=== PATIENT | female | born 1955 | race Caucasian/White ===

== ENCOUNTER 2022-07-08 07:26 | Outpatient (REF) | payer OTHER, SELFPAY | END 2022-07-08 07:27 | disposition home or self-care (01) | LOC: HO.HOSX 07:26 | PROVIDERS: Visit Provider Physician Assistant | DX: Z13.89 Encounter for screening for other disorder (principal) ==

== ENCOUNTER 2022-07-11 07:16 | Outpatient (REF) | payer OTHER, SELFPAY | END 2022-07-11 07:17 | disposition home or self-care (01) | LOC: HO.HOSX 07:16 | PROVIDERS: Visit Provider Physician Assistant | DX: Z13.89 Encounter for screening for other disorder (principal) ==

== ENCOUNTER 2022-08-12 07:29 | Outpatient (REF) | payer OTHER, SELFPAY ==
--- NOTE | ~2022-08-12 | XR_ITS ---
EXAMINATION: XR KNEE SERIES, BILATERAL CLINICAL INFORMATION: Pain in right knee COMPARISON: None TECHNIQUE: AP upright of both knees. Additional lateral and patella view of the right knee. FINDINGS: RIGHT KNEE: Medial Compartment: Severe joint space narrowing and marginal osteophytes indicative of severe osteoarthritis. There is chondrocalcinosis. Lateral Compartment: Marginal osteophytes with nonuniform joint space narrowing indicative of at least [id number] osteoarthritis. There is chondrocalcinosis. Patellofemoral Compartment: Marginal osteophytes indicative of mild osteoarthritis. No effusion. Calcification of the distal quadriceps tendon. Calcification adjacent to the medial femoral condyle likely within the medial collateral ligament. This can be seen with calcific periarthritis or old trauma to medial collateral ligament. Prominent arterial calcification. LEFT KNEE LIMITED AP UPRIGHT: There is chondrocalcinosis. Medial Compartment: Severe joint space narrowing and marginal osteophytes indicative of severe arthrosis. Lateral Compartment: Marginal osteophytes indicative of at least mild osteoarthritis. Prominent arterial calcification. Patella femoral joint not assessed. XR/XR knee RT 2V IMPRESSION: RIGHT KNEE: 1. Chondrocalcinosis. Additional soft tissue calcifications as detailed above likely reflective of calcium pyrophosphate deposition disease or old trauma. 2. Osteoarthritis with degenerative changes severe in the medial compartment. LEFT KNEE: 1. Chondrocalcinosis. 2. Severe osteoarthritis.
--- NOTE | ~2022-08-12 | XR_ITS ---
EXAMINATION: XR KNEE SERIES, BILATERAL CLINICAL INFORMATION: Pain in right knee COMPARISON: None TECHNIQUE: AP upright of both knees. Additional lateral and patella view of the right knee. FINDINGS: RIGHT KNEE: Medial Compartment: Severe joint space narrowing and marginal osteophytes indicative of severe osteoarthritis. There is chondrocalcinosis. Lateral Compartment: Marginal osteophytes with nonuniform joint space narrowing indicative of at least [id number] osteoarthritis. There is chondrocalcinosis. Patellofemoral Compartment: Marginal osteophytes indicative of mild osteoarthritis. No effusion. Calcification of the distal quadriceps tendon. Calcification adjacent to the medial femoral condyle likely within the medial collateral ligament. This can be seen with calcific periarthritis or old trauma to medial collateral ligament. Prominent arterial calcification. LEFT KNEE LIMITED AP UPRIGHT: There is chondrocalcinosis. Medial Compartment: Severe joint space narrowing and marginal osteophytes indicative of severe arthrosis. Lateral Compartment: Marginal osteophytes indicative of at least mild osteoarthritis. Prominent arterial calcification. Patella femoral joint not assessed. XR/XR knee standing BI IMPRESSION: RIGHT KNEE: 1. Chondrocalcinosis. Additional soft tissue calcifications as detailed above likely reflective of calcium pyrophosphate deposition disease or old trauma. 2. Osteoarthritis with degenerative changes severe in the medial compartment. LEFT KNEE: 1. Chondrocalcinosis. 2. Severe osteoarthritis.
== END 2022-08-12 07:30 | disposition home or self-care (01) ==
LOC: HO.HOSX 07:29
PROVIDERS: Visit Provider Physician Assistant
DX: M25.562 Pain in left knee (principal); M25.561 Pain in right knee
CPT/HCPCS: 20610; 73560; 73565; 99202; J1020

== ENCOUNTER → 2022-10-13 14:35 | Outpatient (BNVA) | payer OTHER, SELFPAY | PROVIDERS: PCP Internal Medicine; Visit Provider Physician Assistant | DX: M17.12 Unilateral primary osteoarthritis, left knee (principal) | CPT/HCPCS: 99212 ==

== ENCOUNTER → 2022-11-16 10:20 | Outpatient (BNVA) | payer OTHER, SELFPAY | PROVIDERS: PCP Internal Medicine; Visit Provider Physician Assistant | DX: M17.12 Unilateral primary osteoarthritis, left knee (principal) | CPT/HCPCS: 20610; J7318 ==